=== PATIENT | male | born 1960 | race Caucasian/White ===

== ENCOUNTER → 2023-11-07 | Outpatient (CLI) | payer OTHER ==
[~2023-11-07] MED LIST: DECADRON6 MG PO; LIPITOR 80MG80 MG PO; PRINIVIL40 MG PO; PROAIR HFA0.09 MG/AC IH; SYNTHROID0.175 MG PO; TOPROL XL 25MG25 MG PO; WELLBUTRIN XL300 M1 PO
== END ==
LOC: COL.RAD 12:09
DX: Z01.89 Encounter for other specified special examinations (principal); M25.562 Pain in left knee

== ENCOUNTER → 2023-11-14 | Outpatient (CLI) | payer OTHER | LOC: COL.RAD 13:27 | DX: Z12.2 Encounter for screening for malignant neoplasm of respiratory organs (principal); R91.1 Solitary pulmonary nodule; F17.200 Nicotine dependence, unspecified, uncomplicated ==